=== PATIENT | male | born 1985 ===

== ENCOUNTER 2017-06-22 12:39 | Emergency (ER) | payer SELFPAY ==
[2017-06-22 12:53] VITALS: BP 116/83; PULSE 76; RESP 19; TEMP 98.8; O2SAT 99
--- NOTE | 2017-06-22 13:32 | ED PDOC ---
Arrival/HPI - General Chief Complaint: Back Pain Time Seen by Provider: 06/22/17 13:00 Historian: Patient - History of Present Illness Narrative History of Present Illness (Text): 06/22/17 13:19 Sabino Mcintyre is a 32 year old male, with no significant past medical history , presents to the emergency department complaining of 2 week duration of neck pain. States that pain is worsened while turning his head and reports that pain radiates to left shoulder. Patient works in construction and performs physically strenuous activities. Patient's girlfriend reports that she also noticed some mild bruising to the neck, but has currently resolved. Patient also notes that he has a pimple to the top of his scalp which has ruptured, and reports of pain to the area. Denies any fever, chills, dizziness, chest pain, nausea, vomiting, diarrhea, urinary symptoms, or any other complaints at this time. Time/Duration: Other (2 weeks ) Symptom Onset: Gradual Activities at Onset: Light Past Medical History - Provider Review Nursing Documentation Reviewed: Yes - Infectious Disease Hx of Infectious Diseases: None - Psychiatric Hx Substance Use: Yes (marijuana) - Surgical History Other/Comment: right inguinal hernai repair 6 yrs old - Anesthesia Hx Anesthesia: Yes Hx Anesthesia Reactions: No Hx Malignant Hyperthermia: No Family/Social History - Physician Review Nursing Documentation Reviewed: Yes Family/Social History: No Known Family HX Smoking Status: Never Smoked Hx Alcohol Use: Yes Frequency of alcohol use: Socially Hx Substance Use: Yes (marijuana) Allergies/Home Meds Allergies/Adverse Reactions: Allergies No Known Allergies Allergy (Verified 06/22/17 12:53) Review of Systems - Physician Review All systems were reviewed & negative as marked: Yes - Review of Systems Constitutional: Normal. absent: Fatigue, Fevers Respiratory: Normal. absent: SOB, Cough, Sputum Cardiovascular: Normal. absent: Chest Pain, Palpitations Gastrointestinal: absent: Abdominal Pain, Diarrhea, Nausea, Vomiting Musculoskeletal: Neck Pain, Other (right shoulder pain, ruptured pimple to scalp on top of head ) Neurological: absent: Headache, Dizziness, Focal Weakness Psychiatric: Normal Physical Exam Vital Signs Reviewed: Yes Vital Signs Temp Pulse Resp BP Pulse Ox 06/22/17 12:43 98.8 F 76 19 116/83 99 Temperature: Afebrile Blood Pressure: Normal Pulse: Regular Respiratory Rate: Normal Appearance: Positive for: Well-Appearing, Non-Toxic, Comfortable Pain Distress: None Mental Status: Positive for: Alert and Oriented X 3 - Systems Exam Head: Present: Atraumatic, Normocephalic Pupils: Present: PERRL Conjunctiva: Present: Normal Mouth: Present: Moist Mucous Membranes Neck: Present: Paraspinal Tenderness (left > right. Pain with movement ). No: MIDLINE TENDERNESS Respiratory/Chest: Present: Clear to Auscultation, Good Air Exchange. No: Respiratory Distress, Accessory Muscle Use Cardiovascular: Present: Regular Rate and Rhythm, Normal S1, S2. No: Murmurs Abdomen: Present: Normal Bowel Sounds. No: Tenderness, Distention, Peritoneal Signs, Rebound, Guarding Medical Decision Making ED Course and Treatment: 06/22/17 13:42 Impression: A 32 year old male who presents to the emergency department complaining of neck pain and left shoulder pain Differential Diagnosis included but are not limited to: neck muscle strain Plan: -- Flexeril -- Motrin -- Reassess and disposition Progress Notes: 06/22/17 13:43 Patient is stable for discharge. I've informed and demonstrated certain stretching exercises to alleviate his symptoms and advised him to follow up with PMD within few days. Advised to return to emergency department for any new /worsening symptoms. - Medication Orders Current Medication Orders: Discontinued Medications Cyclobenzaprine HCl (Flexeril) 10 mg PO STAT STA Stop: 06/22/17 13:12 Last Admin: 06/22/17 13:20 Dose: 10 mg Ibuprofen (Motrin Tab) 600 mg PO STAT STA Stop: 06/22/17 13:12 Last Admin: 06/22/17 13:20 Dose: 600 mg - Scribe Statement The provider has reviewed the documentation as recorded by the [facility] Tomlinson Provider Attestation: Symone Tomlinson Disposition/Present on Arrival - Present on Arrival Any Indicators Present on Arrival: No History of DVT/PE: No History of Uncontrolled Diabetes: No Urinary Catheter: No History of Decub. Ulcer: No History Surgical Site Infection Following: None - Disposition Have Diagnosis and Disposition been Completed?: Yes Diagnosis: Neck strain Disposition: HOME/ ROUTINE Disposition Time: 13:22 Patient Plan: Discharge Condition: GOOD Discharge Instructions (ExitCare): Cervical Strain (DC) Additional Instructions: Diego, thank you for letting us take care of you today. Your provider was Dr. Toscano. You were treated for Neck Strain. The emergency medical care you received today was directed at your acute symptoms. If you were prescribed any medication, please fill it and take as directed. It may take several days for your symptoms to resolve. Return to the Emergency Department if your symptoms worsen, do not improve, or if you have any other problems. Please contact your doctor or call one of the physicians/clinics you have been referred to that are listed on the Patient Visit Information form that is included in your discharge packet. Bring any paperwork you were given at discharge with you along with any medications you are taking to your follow up visit. Our treatment cannot replace ongoing medical care by a primary care provider (PCP) outside of the emergency department. Thank you for allowing the [facility] team to be part of your care today. If you had an X-Ray or CT scan: A Radiologist will review the ED reading if any change in treatment is needed we will contact you. If you had a blood, urine, or wound culture: It will take several days for the results, if any change in treatment is needed we will contact you. If you had an STI test: It will take 48 hours for the results. Please call after 1 week if you have not heard back. Prescriptions: Cyclobenzaprine [Flexeril] 5 mg PO TID PRN #20 tab PRN Reason: Muscle Spasm Naproxen 500 mg PO BID PRN #30 tab PRN Reason: Pain, Moderate (4-7) Referrals: Redd Harris DO [Staff Provider] - Follow up with primary Forms: [employer] ([place]rian)
== END 2017-06-22 13:22 | disposition home or self-care (01) ==
LOC: ED 12:39
DX: S16.1XXA Strain of muscle, fascia and tendon at neck level, initial encounter (principal); X50.0XXA Overexertion from strenuous movement or load, initial encounter; Y93.89 Activity, other specified; Y92.89 Other specified places as the place of occurrence of the external cause